=== PATIENT | male | born 1995 | race Caucasian/White ===

== ENCOUNTER → 2017-12-28 | Outpatient (CLI) | payer BC ==
--- NOTE | 2017-12-28 17:42 | RADIOLOGY IMAGING REPORT ---
FACILITY: [facility] PATIENT NAME: Guanakito Ramires : 1995 MR: [id number] V: [id number] EXAM DATE: ORDERING PHYSICIAN: ALYSE GAMEZ TECHNOLOGIST: Location: [facility] - [place] Patient: Guanakito Ramires : 1995 Visit/Account:[id number] Date of Sevice: 12/28/2017 ANKLE 3 VIEW MIN RIGHT HISTORY: Rolled ankle COMPARISON: None FINDINGS: No evidence of acute fracture or dislocation. Talar dome is smooth in contour. Bohler angle is well maintained. Base of the 5th metatarsal is intact. Lateral soft tissue swelling. Small joint effusion. IMPRESSION: 1. No acute osseous abnormality. 2. Lateral soft tissue swelling with a small joint effusion. Report Dictated By: Jet Joseph MD at 12/28/2017 5:36 PM Report E-Signed By: Jet Joseph MD at 12/28/2017 5:38 PM WSN:[id number]
== END ==
LOC: RAD 17:05
PROVIDERS: ATTEND Physician Assistant
DX: M25.471 Effusion, right ankle (principal)